=== PATIENT | male | born 1970 | race Caucasian/White ===

== ENCOUNTER 2022-06-16 00:38 | Day surgery (SDC) | payer SELFPAY ==
[2022-06-03 14:06] VITALS: BMI 25.6
[2022-06-16 06:46] VITALS: BP 131/84; PULSE 81; RESP 18; TEMP 36.3; O2SAT 98
[2022-06-16 06:55] LABS: Glucose Point of Care 121 mg/dl (65-105)
[2022-06-16] MEDS: LACTATED RINGERS 1,000 ML 150 ML IV CONT (06:55)
--- NOTE | 2022-06-16 07:08 | P.PNAN_ITS ---
Anes - Initial Pre Proc Eval Procedure: Operation Date: 06/16/22 08:00 Proposed Procedures p Screening Colonoscopy - Guanaco Banks MD Date/Time: 06/16/22 07:08 Surgeon: Guanaco Banks MD Pre Op Diagnosis: neoplasm screening Patient Data Age: 52 Gender: M Height: 1.91 m Weight: 93.8 kg Last Vital Signs Temp 36.3 C L 06/16/22 06:46 Pulse 81 06/16/22 06:46 Resp 18 06/16/22 06:46 BP 131/84 06/16/22 06:46 Pulse Ox 98 06/16/22 06:46 O2 Del Method Room Air 06/16/22 06:46 Allergies Allergy/AdvReac Type Severity Reaction Status Date / Time No Known Allergies Allergy Mild Verified 06/16/22 06:44 Home Medications Medication Instructions Recorded Confirmed Type amlodipine 10 mg tablet 10 mg PO DAILY 06/03/22 06/16/22 History atorvastatin 40 mg tablet 40 mg PO DAILY 06/03/22 06/16/22 History empagliflozin 12.5 mg-metformin 1 tablet PO BID 06/03/22 06/16/22 History 1,000 mg tablet (Synjardy) fexofenadine 180 mg tablet 180 mg PO DAILY 06/03/22 06/16/22 History losartan 50 mg tablet 50 mg PO DAILY 06/03/22 06/16/22 History magnesium 500 mg tablet 500 mg PO DAILY 06/03/22 06/16/22 History naproxen sodium 220 mg tablet 220 mg PO Q8H PRN Pain 06/03/22 06/16/22 History (Aleve) omeprazole 40 mg capsule,delayed 40 mg PO DAILY 06/03/22 06/16/22 History release Laboratory Tests 06/16/22 06:50 POC Capillary Glucose 121 mg/dl H mg/dl (65-105) Patient hx anesthesia problems: none Family hx anesthesia problems: none Results Review: All pre-operative results and documents have been reviewed as part of the pre- operative evaluation. [facility] Past Medical History Medical History (Updated 06/16/22 @ 07:11 by Jabari Fischer MD) Diabetes HTN (hypertension) Surgical History Surgical History (Updated 06/16/22 @ 07:11 by Jabari Fischer MD) H/O arthroscopic knee surgery History of carpal tunnel surgery Social History Social History Smoking status: Former smoker Tobacco type: cigarettes Alcohol intake: current Drinks per week: 6 Substance use type: does not use Living arrangements: with family Spiritual care concerns: No Anes - Eval Final PreProcedure Day of Procedure 06/16/22 07:08 Patient weight: overweight Heart: regular rate and rhythm Lungs: clear to auscultation Airway: Mallampati scale class II and special considerations poor opening Neurological: alert and oriented Last oral intake: >/= 8 hours ASA classification: III Emergent: no Anesthetic plan: proceed Results Review: All pre-operative results and documents have been reviewed as part of the pre- operative evaluation. Informed Consent: The patient's anesthetic plan and its attendant risks and benefits were discussed with the patient/family/POA. Questions were solicited and answers provided to the satisfaction of the patient/family/POA.
--- NOTE | 2022-06-16 07:26 | P.HP_ITS ---
H&P: HPI History of Present Illness Date/Time: 06/16/22 07:26 Chief Complaint: Neoplasia screening. Narrative: This a 52-year-old white male patient presents for screening colonoscopy. Patient's current weight appetite bowel movements are normal. Patient denies abdominal pain. Patient has had no bleeding. Family history is noncontributory. Patient presents today for neoplasia screening colonoscopy. Review of Systems Review of Systems: Review of systems noncontributory. [facility] Past Medical History Medical History (Updated 06/16/22 @ 07:27 by Guanaco Banks MD) Diabetes HTN (hypertension) Surgical History Surgical History (Updated 06/16/22 @ 07:11 by Jabari Fischer MD) H/O arthroscopic knee surgery History of carpal tunnel surgery Social History Social History Smoking status: Former smoker Tobacco type: cigarettes Alcohol intake: current Drinks per week: 6 Substance use type: does not use Living arrangements: with family Spiritual care concerns: No Meds Home Medications and Allergies Home Medications Medication Instructions Recorded Confirmed Type amlodipine 10 mg tablet 10 mg PO DAILY 06/03/22 06/16/22 History atorvastatin 40 mg tablet 40 mg PO DAILY 06/03/22 06/16/22 History empagliflozin 12.5 mg-metformin 1 tablet PO BID 06/03/22 06/16/22 History 1,000 mg tablet (Synjardy) fexofenadine 180 mg tablet 180 mg PO DAILY 06/03/22 06/16/22 History losartan 50 mg tablet 50 mg PO DAILY 06/03/22 06/16/22 History magnesium 500 mg tablet 500 mg PO DAILY 06/03/22 06/16/22 History naproxen sodium 220 mg tablet 220 mg PO Q8H PRN Pain 06/03/22 06/16/22 History (Aleve) omeprazole 40 mg capsule,delayed 40 mg PO DAILY 06/03/22 06/16/22 History release Allergies Allergy/AdvReac Type Severity Reaction Status Date / Time No Known Allergies Allergy Mild Verified 06/16/22 06:44 Vital Signs Vital Signs - 24 hr 06/16/22 06:46 Temperature 97.4 F L Pulse Rate 81 Respiratory Rate 18 Blood Pressure 131/84 Pulse Oximetry 98 Oxygen Delivery Room Air Exam Narrative: Physical exam reveals patient be alert. Vital signs stable. HEENT exam is unremarkable. Patient is anicteric. Lungs are clear to auscultation and percussion. Heart is without murmur or extra sounds. Abdomen bowel sounds are present soft nontender with no organomegaly. Digital external rectal exam is normal. Assessment and Plan Assessment and plan (1) Encounter for screening colonoscopy: Code(s): Z12.11 - Encounter for screening for malignant neoplasm of colon Status: Acute Assessment and Plan: Patient presents for screening colonoscopy. Appears to be at average risk for colon polyps. Further recommendations will be given after endoscopy.
[2022-06-16] MEDS: SIMETHICONE ORAL SUSPENSION 20 MG/0.3 ML 30 ML BOTTLE 0.6 ML IRRIGATION (08:06)
[2022-06-16 08:17] VITALS: BP 122/76; PULSE 78; RESP 18; O2SAT 97
[2022-06-16 08:27] VITALS: BP 140/84; PULSE 79; RESP 23; O2SAT 97
[2022-06-16 08:37] VITALS: BP 149/93; PULSE 69; RESP 17; O2SAT 98
== END 2022-06-16 08:43 | disposition home or self-care (01) ==
PROVIDERS: PCP Family Medicine; Visit Provider Internal Medicine Gastroenterology
PROC: 0DJD8ZZ Inspection of Lower Intestinal Tract, Via Natural or Artificial Opening Endoscopic (ICD-10-PCS; CPT 45378; principal; 2022-06-16 08:00)
DX: Z12.11 Encounter for screening for malignant neoplasm of colon (principal); K64.8 Other hemorrhoids; I10 Essential (primary) hypertension; E11.9 Type 2 diabetes mellitus without complications; Z87.891 Personal history of nicotine dependence; Z79.84 Long term (current) use of oral hypoglycemic drugs
CPT/HCPCS: 45378; 82948; J2704; J7120